=== PATIENT | male | born 1945 | race Caucasian/White ===

== ENCOUNTER 2016-12-04 10:29 | Day surgery (SDC) | payer MEDICARE, OTHER ==
[2016-12-04] VITALS (8 sets, daily range): BP systolic 102–125; BP diastolic 44–73; PULSE 61–84; RESP 13–18; O2SAT 91–96
[~2016-12-04] VITALS: Ht 170.2 cm; Wt 116.8 kg
--- NOTE | 2016-12-04 06:49 | PCM.HPANE ---
Patient Data Surgeon Admitting Provider: Attending Provider:Mariama Cyr MD Primary Care Physician:Jaquelin Craft MD Other Provider:[facility] [facility] Reason for Visit Bladder Tumor Ht/WT & BMI Height (Feet): 5 Height (Inches): 7 Weight (Kilograms): 117.660 Body Mass Index 40.00 Allergies Coded Allergies: glipizide (Verified Allergy, Unknown, hives, 04/27/16) simvastatin (Verified Allergy, Unknown, elevated triglycerides, 04/27/16) oxycodone (Verified Adverse Reaction, Unknown, hallucinations, 04/27/16) Past Anesthesia History Anesthesia History: Denies:: Abnormal Airway, Anesthesia Reactions, Difficult Intubation, Fam Anesthesia Reaction, Fam Malignant Hypertherm, Malignant Hyperthermia Diabetes History Hx Diabetes?: Yes (last Hgb A1C 7.2 approx 6 weeks ago) Type of Diabetes: Type II Glycemic Control: Insulin & Oral Medication MRSA MRSA: No Medications Blood Thinner: Aspirin Reported Medications Cetirizine HCl (Zyrtec)10 Mg Rhyhmqh25 Mg PO HS #30 CAPSULE Ref 0 12/01/16 Bupropion ER (Wellbutrin SR)100 Mg Tablet.er100 Mg PO BID Ref 0 12/01/16 Cholecalciferol (Vitamin D3) (Vitamin D3)4,000 Unit Capsule1,000 Unit PO DAILY 12/01/16 Vit B Comp/C/FA/Iron/Vit E (Vitamin B Complex Tablet)1 Each Tablet1 Each PO DAILY 12/01/16 Fenofibrate (Tricor)145 Mg Hwk898 Mg PO DAILY 30 Days Ref 0 12/01/16 Linagliptin (Tradjenta)5 Mg Tablet5 Mg PO DAILY 12/01/16 Levothyroxine (Synthroid)125 Mcg Tinomf847 Mcg PO DAILY Ref 0 12/01/16 Bacillus Coagulans (Probiotic)10 Billion Cell Capsule.dr1 Each PO DAILY 12/01/16 Omeprazole 40 Mg Capsule.dr40 Mg PO DAILY Ref 0 12/01/16 Oxybutynin Chloride ER 5 Mg Tab.er.245 Mg PO DAILY Ref 0 12/01/16 Metformin (Glucophage)1,000 Mg Tablet1,000 Mg PO BID Ref 0 12/01/16 Lisinopril 40 Mg Wiweyt54 Mg PO DAILY 30 Days Ref 0 12/01/16 Atorvastatin (Lipitor)20 Mg Xlrmeg06 Mg PO DAILY Ref 0 12/01/16 Insulin Glargine (Lantus U100 Insulin Vial)100 Unit/Ml Vial30 Unit SUBQ HS #1 VIAL Ref 0 12/01/16 [place]-3/Dha/Epa/Fish Oil (Fish Oil 1,000 mg Softgel)1 Each Capsule1 Each PO DAILY 12/01/16 Carvedilol (Coreg)25 Mg Zypkbm44 Mg PO BID Ref 0 12/01/16 Ubidecarenone/Vit E Acetate (Co Q-10 100 mg Softgel)1 Each Capsule1 Each PO DAILY 12/01/16 Aspirin 81 Mg Ofouvi25 Mg PO DAILY Ref 0 12/01/16 Discontinued Reported Medications Mitomycin 40 Mg Vial40 Mg BLADDER monthly 12/01/16 Hyoscyamine SL 0.125 Mg Subl0.125 Mg SL Q6H PRN frequency 12/01/16 Cholecalciferol (Vitamin D3) (Vitamin D3)1,000 Unit Tab.chew1,000 Unit PO DAILY 05/01/16 Ranitidine 150 Mg Tftfjzb087 Mg PO DAILY PRN reflux Ref 0 05/01/16 Linagliptin (Tradjenta)5 Mg Tablet5 Mg PO DAILY #30 05/01/16 Metformin (Glucophage)1,000 Mg Tablet1,000 Mg PO BID Ref 0 04/28/16 Cetirizine HCl (Zyrtec)10 Mg Ojzfsuj97 Mg PO HS #30 CAPSULE Ref 0 04/27/16 Bupropion ER (Wellbutrin SR)100 Mg Tablet.er100 Mg PO BID Ref 0 04/27/16 Lactobacillus Combination No.4 (Probiotic)1 Each Capsule2 Each PO HS 04/27/16 Omeprazole Magnesium (Prilosec Otc)20 Mg Tablet.dr20 Mg PO BID #1 PKG Ref 0 04/27/16 Hyoscyamine 0.125 Mg Tablet0.125 Mg SL Q6H PRN prn 04/27/16 Insulin Glargine (Lantus U100 Insulin Vial)100 Unit/Ml Vial16 Unit SUBQ QPM #1 VIAL Ref 0 01/10/16 Fenofibrate (Tricor)145 Mg Rlv505 Mg PO DAILY 30 Days Ref 0 01/10/16 Vitamin B Complex 100 No.2 (B-100 Complex)100 Mg Tablet.er100 Mg PO DAILY 06/24/15 [place]-3/Dha/Epa/Fish Oil (Fish Oil 1,000 mg Softgel)1 Each Capsule1 Each PO DAILY 06/24/15 Aspirin 81 Mg Jeglob35 Mg PO DAILY Ref 0 06/24/15 Levothyroxine (Synthroid)125 Mcg Bbqbgd748 Mcg PO DAILY 30 Days Ref 0 02/24/15 Lisinopril 40 Mg Qufrji78 Mg PO DAILY 30 Days Ref 0 02/24/15 Atorvastatin (Lipitor)20 Mg Zqlqgc18 Mg PO DAILY 30 Days Ref 0 02/24/15 Carvedilol (Coreg)25 Mg Pjljoe68 Mg PO BID 30 Days Ref 0 02/24/15 Ubidecarenone/Vit E Acetate (Co Q-10 100 mg Softgel)1 Each Capsule1 Each PO DAILY 02/24/15 History History of ENT Problems?: Yes HEENT History: Positive for:: Hearing Problem TMJ (grinds teeth, wears plant protection guard) Denies:: Abnormal Airway Cataracts Difficult Intubation Dysphagia Sinus Problem Hx of Heart Problems?: Yes Cardiovascular History: Positive for:: Cardiac Surgery ([place] with stents X2- 2008) Hypertension Denies:: AICD Abdominal Aortic Aneurism Atrial Fibrillation Chest Pain Congestive Heart Failure Edema Heart Murmur (echo 08/2015 ef 55%) Irregular Heartbeat Pacemaker Valvular Heart Disease Hx of Respiratory Problem?: No Respiratory History: Denies:: Asthma COPD Emphysema Oxygen Administration Pneumonia Pulmonary Embolism Tuberculosis Use of C-PAP Machine (does not tolerate CPAP) Hx Neurologic Problems?: No Neurological History: Denies:: Alzheimer's Disease CVA Dementia Dizziness Headaches Multiple Sclerosis Parkinson's Disease Seizures Hx of GI Problems?: Yes Gastrointestinal History: Positive for:: Gastroesphageal Reflux Heartburn Denies:: Cirrhosis Diverticulitis Gastrointestinal Bleeding Hepatitis Rectal Bleeding Hx of Problems?: Yes Other Pertinent History: bladder tumor, current admission problem- monthly mitomycin, last cysto 04/2016 Male Hx: Denies:: Prostate Problems Scrotal Mass Testicular Surgery Skin History: Denies:: History Skin Disorders? Pressure Ulcers Hx Musculoskeletal Problems?: Yes Musculoskeletal History: Positive for:: Musculoskeletal Trauma (S/p knee arthroscopies) Hx of Psycho/Social Problems?: No Hx Surgeries?: Yes (tonsils, vocal cord polyps, Cysto, TURBT X2,) Hx Any Other Health Problems?: Yes Other History: Positive for:: Cancer (BLADDER) Thyroid Disease Denies:: Endocrine Disease Hospitalization History Blood Transfusions: Denies:: Blood Transfusions Hx Diabetes: Yes (last Hgb A1C 7.2 approx 6 weeks ago) Hx Alcohol Use: YesHx Substance Use: No Smoking Status: Current Every Day Smoker Light Tobacco Smoker Have You Smoked inLast 12 mo: Yes Stop/Bang S-Snoring: Do You Snore Loudly: No T-Tired: feel tired, fatigued: No O-Obsered: Observed not breath: No P-Blood Pressure: treated: Yes B- Body Mass Index > 35 kg/m2: Yes A- Age over 50: Yes N- Neck Large Circumference: Yes G- Gender Male: Yes FLEX Total Score: 5 Risk Assessment Category Category 1A: Patient has history of documented sleep apnea, and HAS NOT received any narcotic, sedative or anesthesia administration during this stay. Category 1B: Patient has history of documented sleep apnea, and HAS received any narcotic , sedative or anesthesia administration during this stay Category 2: Patient has SUSPECTED Obstructive Sleep Apnea, and HAS received any narcotic , sedative or anesthesia administration during this stay. Category 3: Patient has SUSPECTED Obstructive Sleep Apnea and HAS NOT received narcotic, sedative or anesthesia administration during this stay. Category 4: Outpatient in Procedural Areas with known sleep apnea or who screen positive for High Risk via the STOP/BANG questionnaire. Exam Exam General Appearance: Alert, Oriented X3, Cooperative HEENT/AIRWAY: MP 2, Neck Movement (FROM, Thick), Mouth Opening (WNL) Lungs: Clear to Auscultation Heart: Exam Unremarkable Plan Impression Patient chart reviewed, patient interviewed and anesthestic plan with risks, benefits, and alternatives discussed, and informed consent obtained. NPO Status: 04/30/16 ASA Physical Status: ASA3 Severe Disease Anesthetic Plan: GA Bene/Risks/Altern/Consents: Yes HP Complete Prior to Induction: Yes Elgin Santos MD Dec 04, 2016 06:49
[~2016-12-04 10:29] MED LIST: ASPI-973 PO; ATOR20TA PO; BACI1CAP6 PO; BUPR100T7 PO; CARV25TA PO; CETI10CA PO; CHOL40003 PO; CeFAZolin Inj 2 GM in IV Premix 1 EACH IV ONE; FENO160T PO; HYOS0.1218 SL; INSU100V7 SUBQ; LEVO125T2 PO; LINA5TAB PO; LISI40TA PO; Lactated Ringer's 1,000 ML IV ONE; METF1000 PO; OMEG-38 PO; OMEP40CA36 PO; OXYB5TAB PO; UBID1CAP52 PO; VIT1TABL83 PO; [UNRECOGNIZED DRUG - CODE] BLADDER
[2016-12-04] MEDS ORDERED: Neostigmine 1 mg/mL 10 mL Inj ONE (10:30)
[2016-12-04] MEDS ORDERED: Propofol 10,000 mCg/mL 20 mL Inj ONE (10:30)
[2016-12-04] MEDS ORDERED: Ondansetron 2 mg/mL 2 mL Inj ONE (10:30)
[2016-12-04] MEDS ORDERED: fentaNYL-PF 50 mCg/mL 2 mL Inj ONE (10:30)
[2016-12-04] MEDS ORDERED: CeFAZolin Inj 2 gm / 50mL D5W IV ONE (10:41)
[2016-12-04] MEDS ORDERED: Lactated Ringer's 1,000 ML IV SCH (13:19)
[2016-12-04] MEDS ORDERED: Lactated Ringer's 500 ML IV PRN (13:19)
[2016-12-04] MEDS ORDERED: hydrALAZINE 20 mg/mL Inj IVPUSH PRN (13:20)
[2016-12-04] MEDS ORDERED: Ondansetron 2 mg/mL 2 mL Inj IVPUSH PRN (13:20)
[2016-12-04] MEDS ORDERED: Atropine 0.4 mg/mL Inj IVPUSH PRN (13:20)
[2016-12-04] MEDS ORDERED: Dexamethasone 4 mg/mL Inj IVPUSH PRN (13:20)
[2016-12-04] MEDS ORDERED: Labetalol 5 mg/mL 4 mL Inj IV PRN (13:20)
[2016-12-04] MEDS ORDERED: fentaNYL-PF 50 mCg/mL 2 mL Inj IVPUSH PRN (13:20)
[2016-12-04] MEDS ORDERED: Phenylephrine 10,000 mCg/mL Inj IVPUSH PRN (13:20)
[2016-12-04] MEDS ORDERED: HYDROmorphone 1 mg/mL Inj IVPUSH PRN (13:20)
[2016-12-04] MEDS ORDERED: EPHEDrine Sulfate 50 mg/mL Inj IVPUSH PRN (13:20)
--- NOTE | 2016-12-04 14:55 | PCM.ANEP1 ---
Post Anesthesia Phase 1 PACU Phase 1 Assessment Vital Signs Vital Signs Date Time Temp Pulse Resp B/P Pulse Ox O2 Delivery O2 Flow Rate FiO2 12/04/16 14:35 82 15 113/45 95 Simple Mask 10 12/04/16 14:30 36.3 84 17 125/58 96 Simple Mask 10 12/04/16 10:51 35.2 69 18 124/62 94 Room Air Anesthetic Administered: GA Level of Alertness: Awake, talking DENISE's with Equal Strength: Yes Pain: No Nausea or Vomiting: No Oxygen Delivery: Room Air Lungs: Normal Air Movement Elgin Santos MD Dec 04, 2016 14:55
[2016-12-04] MEDS ORDERED: HYDROcodone-APAP 5-325 mg Tablet PO PRN (15:15)
--- NOTE | 2016-12-05 00:59 | OP ---
[address] [address] OPERATIVE REPORT PATIENT: DENNIS MCDONALD : 1945 MR#: [id number] ADMIT: 12/04/2016 JOB ID: [id number] DATE OF SURGERY: 12/04/2016 PREOPERATIVE DIAGNOSIS(ES): Bladder lesion. POSTOPERATIVE DIAGNOSIS(ES): Bladder lesion. PROCEDURES PERFORMED: 1. Digital rectal exam under anesthesia. 2. Cystoscopy. 3. Transurethral resection of bladder tumor (1 cm). Modifier 22 is being requested due to patient's body habitus and location of the tumor, which required a resection time over 100% longer than typical for the size of tumor. SURGEON: Mariama Cyr MD. BONE GLUE MAKER: None. FINDINGS: 1. Normal rectal exam without suspicious lesions or masses. 2. Nodular appearing tumor at the dome of the bladder surrounded by bullous edema. ANESTHESIA: General. ESTIMATED BLOOD LOSS: Less than 5 mL. DRAINS: None. SPECIMENS: Bladder tumor. COMPLICATIONS: None. CONDITION: Stable. INDICATIONS FOR PROCEDURE: The patient is a 71-year-old gentleman with a history of bladder cancer. On surveillance cystoscopy, he was found to have what appeared to be a bladder tumor again at the dome, where he had tumor in the past. He now presents for transurethral resection of bladder tumor. DESCRIPTION OF PROCEDURE: After informed consent was obtained, patient was taken to the operating room. A time-out was performed, identifying correct patient, surgical site and procedure. General anesthesia was smoothly induced. He was placed in the lithotomy position and all pressure points were identified and appropriately padded. Rectal exam was performed without suspicious findings. His genitals were then prepped and draped in usual sterile fashion. Given the patient's body habitus, the location of the tumor, and past experience with the nature of this resection, the long resectoscope was utilized. It was inserted into the patient's bladder under direct vision. The bladder was systematically inspected. The lenses with the long resectoscope were both 12 and 70 degree lenses, which were both used. There were no other lesions other than that in the dome of the bladder. It was attempted to use the 24-Slovak loop to resect the tumor and considerable amount of assistance was required to push down on the bladder to bring it into proximity of the resectoscope. There was quite a bit of manipulation that was required on the scope and the duration of procedure was over three times that of a normal TURBT for the size of this tumor, given the location, as well as the patient's very obese body habitus; therefore, modifier 22 is being requested. So both with the resectoscope, as well as cold cup biopsies, the tumor was removed. The resecting loop was used to cauterize the dome of the bladder again with considerable effort made. The bladder was drained and area of resection was inspected again, and there was excellent hemostasis at the end of the procedure. Instruments were removed from the patient's body and patient was reversed from general anesthesia and taken to the PACU in good and stable condition. CURT
--- NOTE | 2016-12-05 07:45 | PCM.ANEP2 ---
Post Anesthesia Evaluation ASA/CMS Post Anesthesia VS in Patient's Normal Range?: Yes Resp Stable; Airway Patent?: Yes CV Function & Hydration Stable: Yes Mental Status Recovered?: Yes Pain control Satisfactory?: Yes N/V Control Satisfactory?: Yes Elgin Santos MD Dec 05, 2016 07:45
--- NOTE | 2016-12-08 10:53 | PATH ---
SURGICAL PATHOLOGY Attending Physician:Mariama Cyr, CASE STATUS: Signed Out PATIENT NAME: DENNIS MCDONALD PID: [id number] : 1945 DATE COLLECTED:12/04/2016 23:36 SPECIMEN: Bladder, Biopsy CLINICAL HISTORY: BLADDER TUMOR 1). BLADDER TUMOR FINAL DIAGNOSIS: 1.BIOPSY, URINARY BLADDER TUMOR: UROTHELIAL CARCINOMA, HIGH GRADE, WITH AREAS OF GLANDULAR DIFFERENTIATION, INVADING THE LAMINA PROPRIA. MUSCULARIS PROPRIA NOT DEFINITELY IDENTIFIED. ICD10 code C67.9 NOTE: A preliminary report is telephoned to Dr. Mariama Cyr at 11:45 a.m. on 12/05/16. Case reviewed by Dr Minesh Thomas who agrees with the diagnosis. GROSS DESCRIPTION: The specimen is received in one formalin filled container labeled with the patient's name, sublabeled "bladder tumor" and consists of a 0.3 x 0.3 x 0.2 CM light chirinos-montoya portion of tissue which is entirely submitted in one cassette. 12/05/2016 DAC MICRO DESCRIPTION: Sections are of a biopsy from the urinary bladder. The tissue is diffusely involved by an invasive carcinoma which in most areas has a distinct urothelial appearance, whereas in other areas there appears to be glandular differentiation. The tumor is invading lamina propria, and although some smooth muscle fibers are seen, these are most consistent with muscularis mucosa rather than muscularis propria. Definite muscularis propria is not identified. Immunohistochemistry is performed in order to better evaluate the two patterns of tumor. Immunohistochemistry Results [id number], both glandular and urothelial growth patterns [id number] in glandular pattern only CHRISTINA-3Strongly positive in urothelial pattern and weakly positive in the glandular pattern PSANegative Interpretation: This immunophenotype is consistent with a high-grade urothelial carcinoma which shows glandular differentiation. This test was developed and its performance characteristics determined by [employer]. It has not been cleared or approved by the [place]. [place]. Food and Drug Administration. The FDA has determined that such clearance or approval is not necessary. This test is used for clinical purposes. It should not be regarded as investigational or for research. ICD-9 CODES: CPT CODES: 1: 13516, 63811, 36979, 17787, 90276 PROCEDURE/ADDENDA: Addendum SPI Addendum Diagnosis A) Urinary bladder biopsy: Urothelial carcinoma, high grade Secondary component: Glandular component: 40% Stage: Invasion of lamina propria (pT1) Extent of LP invasion: Extensive Angiolymphatic invasion: Absent Muscularis propria: Absent Addendum Comment Immunohistochemical stains performed at the outside institution and reviewed at [facility] show that the carcinoma cells are positive for GATA3 (strong and diffuse in the urothelial component, and weak in the glandular area), CK7, and CK20 (positive only in the glandular areas), and negative for PSA. These findings support the above diagnosis. For complete details see [facility] original report [id number]. Electronically Signed Out Reji Nunez MD Electronically Signed Out Reji Nunez MD [facility] [address], [place] [address] Technical component performed at [facility], [address], [place], [address]
[2016-12-27] MEDS ORDERED: MITOMYCIN IVPB (17:09)
[2017-03-01] MEDS ORDERED: RANI-426 PO (12:52)
[2017-03-01] MEDS ORDERED: FENO160T14 PO (12:52)
[2017-03-01] MEDS ORDERED: INSU100I13 SUBQ (12:52)
[2017-03-01] MEDS ORDERED: CHOL500050 PO (13:09)
[2017-03-01] MEDS ORDERED: OMEP20CA11 PO (13:09)
[2017-03-01] MEDS ORDERED: RANI150C4 PO (13:09)
== END 2016-12-04 23:59 | disposition home or self-care (01) ==
LOC: SAS 10:29
PROVIDERS: ATTEND Urology
DX: C67.9 Malignant neoplasm of bladder, unspecified (principal); I10 Essential (primary) hypertension; I25.10 Atherosclerotic heart disease of native coronary artery without angina pectoris; R31.0 Gross hematuria; K21.9 Gastro-esophageal reflux disease without esophagitis; E11.9 Type 2 diabetes mellitus without complications; F17.210 Nicotine dependence, cigarettes, uncomplicated; Z79.4 Long term (current) use of insulin; Z79.84 Long term (current) use of oral hypoglycemic drugs; Z79.82 Long term (current) use of aspirin; Z95.5 Presence of coronary angioplasty implant and graft
CPT/HCPCS: 45990; 52234; J0690; J2405; J2710; J3010; J7120

== ENCOUNTER 2017-01-15 08:26 | Day surgery (SDC) | payer MEDICARE, OTHER ==
--- NOTE | 2016-12-29 07:44 | PCM.HPANE ---
Patient Data Surgeon Admitting Provider: Attending Provider:Mariama Cyr MD Primary Care Physician:Jaquelin Craft MD Other Provider:[facility] [facility] Reason for Visit Bladder Cancer Ht/WT & BMI Height (Feet): 5 Height (Inches): 7 Weight (Kilograms): 118.388 Body Mass Index 40.00 Allergies Coded Allergies: glipizide (Verified Allergy, Severe, hives, 12/27/16) aspirin (Verified Adverse Reaction, Severe, HALLUCINATIONS (PT TAKING LOW-DOSE), 12/27/16) oxycodone (Verified Adverse Reaction, Severe, hallucinations, 12/27/16) simvastatin (Verified Adverse Reaction, Severe, elevated triglycerides, 09/02) Past Anesthesia History Anesthesia History: Denies:: Abnormal Airway, Anesthesia Reactions, Difficult Intubation, Fam Anesthesia Reaction, Fam Malignant Hypertherm, Malignant Hyperthermia Diabetes History Hx Diabetes?: Yes (LAST HGB A1C (APPROX 2 MONTHS AGO) 7.2) Type of Diabetes: Type II Glycemic Control: Insulin & Oral Medication MRSA MRSA: No Medications Blood Thinner: Aspirin Hypertension Medication: Yes (LISINOOPRIL) Home Meds Incl Beta Keisha: Yes (CARVEDILOL) Reported Medications [Mitomycin ] No Conflict Check40 Mg IVPB Q 4 MONTHS 12/27/16 Cetirizine HCl (Zyrtec)10 Mg Zzripux00 Mg PO HS #30 CAPSULE Ref 0 12/01/16 Bupropion ER (Wellbutrin SR)100 Mg Tablet.er100 Mg PO BID Ref 0 12/01/16 Cholecalciferol (Vitamin D3) (Vitamin D3)4,000 Unit Capsule1,000 Unit PO DAILY 12/01/16 Vit B Comp/C/FA/Iron/Vit E (Vitamin B Complex Tablet)1 Each Tablet1 Each PO DAILY 12/01/16 Fenofibrate (Tricor)145 Mg Xoi549 Mg PO DAILY 30 Days Ref 0 12/01/16 Linagliptin (Tradjenta)5 Mg Tablet5 Mg PO DAILY 12/01/16 Levothyroxine (Synthroid)125 Mcg Seuwgi099 Mcg PO DAILY Ref 0 12/01/16 Bacillus Coagulans (Probiotic)10 Billion Cell Capsule.dr1 Each PO DAILY 12/01/16 Omeprazole 40 Mg Capsule.dr40 Mg PO DAILY Ref 0 12/01/16 Oxybutynin Chloride ER 5 Mg Tab.er.245 Mg PO DAILY Ref 0 12/01/16 Metformin (Glucophage)1,000 Mg Tablet1,000 Mg PO BID Ref 0 12/01/16 Lisinopril 40 Mg Joephd25 Mg PO DAILY 30 Days Ref 0 12/01/16 Atorvastatin (Lipitor)20 Mg Lcgyaf26 Mg PO DAILY Ref 0 12/01/16 Insulin Glargine (Lantus U100 Insulin Vial)100 Unit/Ml Vial30 Unit SUBQ HS #1 VIAL Ref 0 12/01/16 [place]-3/Dha/Epa/Fish Oil (Fish Oil 1,000 mg Softgel)1 Each Capsule1 Each PO DAILY 12/01/16 Carvedilol (Coreg)25 Mg Fnmylf73 Mg PO BID Ref 0 12/01/16 Ubidecarenone/Vit E Acetate (Co Q-10 100 mg Softgel)1 Each Capsule1 Each PO DAILY 12/01/16 Aspirin 81 Mg Qozcex98 Mg PO DAILY Ref 0 12/01/16 History History of ENT Problems?: Yes HEENT History: Positive for:: Hearing Problem Sinus Problem (SEASONAL ALLERGIES) TMJ (grinds teeth, wears overnight associate) Denies:: Abnormal Airway Cataracts Difficult Intubation Dysphagia Other HEENT Pertinent History: S/P TONSILLECTOMY,EXC VOCAL CHORD POLYP Hx of Heart Problems?: Yes Cardiovascular History: Positive for:: Cardiac Surgery (HEART CATH W/ stents X2- 2009) Coronary Artery Disease Hypertension (HYPERLIPIDEMIA) Denies:: AICD Abdominal Aortic Aneurism Atrial Fibrillation Chest Pain Congestive Heart Failure Edema Heart Murmur (echo 08/2015 ef 55%) Irregular Heartbeat Pacemaker Valvular Heart Disease Hx of Respiratory Problem?: Yes Respiratory History: Positive for:: Use of C-PAP Machine (FLEX+ does not tolerate CPAP) Denies:: Asthma COPD Emphysema Oxygen Administration Pneumonia Pulmonary Embolism Tuberculosis Hx Neurologic Problems?: Yes Neurological History: Denies:: Alzheimer's Disease CVA Dementia Dizziness Headaches Multiple Sclerosis Parkinson's Disease Seizures Hx of GI Problems?: Yes Gastrointestinal History: Positive for:: Gastroesphageal Reflux Heartburn Denies:: Cirrhosis Diverticulitis Gastrointestinal Bleeding Hepatitis Rectal Bleeding (HX COLON POLYPS) Hx of Problems?: Yes Other Pertinent History: BLADDER TUMOR/CA=CURRENT PROBLEM C/OF HEMATURIA S/P TURBT X3, MONTHLY MITOMYCIN STARTED 05/2016 Male Hx: Denies:: Prostate Problems Scrotal Mass Testicular Surgery Skin History: Denies:: History Skin Disorders? Pressure Ulcers Hx Musculoskeletal Problems?: Yes Musculoskeletal History: Positive for:: Musculoskeletal Trauma (S/p knee arthroscopies) Hx of Psycho/Social Problems?: No Hx Surgeries?: Yes (tonsils, vocal cord polyps, Cysto, TURBT X3,KNEE SCOPES, HEART CATH W/ STENT) Hx Any Other Health Problems?: Yes Other History: Positive for:: Cancer (BLADDER) Thyroid Disease Denies:: Endocrine Disease Hospitalization History Blood Transfusions: Denies:: Blood Transfusions Hx Diabetes: Yes (LAST HGB A1C (APPROX 2 MONTHS AGO) 7.2) Hx Alcohol Use: YesHx Substance Use: No Smoking Status: Current Every Day Smoker Light Tobacco Smoker Have You Smoked inLast 12 mo: Yes Stop/Bang S-Snoring: Do You Snore Loudly: No T-Tired: feel tired, fatigued: Yes O-Obsered: Observed not breath: No P-Blood Pressure: treated: Yes B- Body Mass Index > 35 kg/m2: Yes A- Age over 50: Yes N- Neck Large Circumference: Yes G- Gender Male: Yes FLEX Total Score: 6 Risk Assessment Category Category 1A: Patient has history of documented sleep apnea, and HAS NOT received any narcotic, sedative or anesthesia administration during this stay. Category 1B: Patient has history of documented sleep apnea, and HAS received any narcotic , sedative or anesthesia administration during this stay Category 2: Patient has SUSPECTED Obstructive Sleep Apnea, and HAS received any narcotic , sedative or anesthesia administration during this stay. Category 3: Patient has SUSPECTED Obstructive Sleep Apnea and HAS NOT received narcotic, sedative or anesthesia administration during this stay. Category 4: Outpatient in Procedural Areas with known sleep apnea or who screen positive for High Risk via the STOP/BANG questionnaire. Plan Impression Patient chart reviewed, patient interviewed and anesthestic plan with risks, benefits, and alternatives discussed, and informed consent obtained. NPO Status: BLACK [place]FFEE THIS AM Other This case was rescheduled. I did not provide anesthesia. Jennifer Mason DO Dec 29, 2016 07:44
[~2017-01-15] VITALS: Ht 170.2 cm; Wt 118.4 kg
--- NOTE | 2017-01-15 06:39 | PCM.HPANE ---
Patient Data Surgeon Admitting Provider: Attending Provider:Mariama Cyr MD Primary Care Physician:Jaquelin Craft MD Other Provider:[facility] Reason for Visit Bladder Cancer Ht/WT & BMI Height (Feet): 5 Height (Inches): 7 Weight (Kilograms): 118.388 Body Mass Index 40.00 Allergies Coded Allergies: glipizide (Verified Allergy, Severe, hives, 12/27/16) aspirin (Verified Adverse Reaction, Severe, HALLUCINATIONS (PT TAKING LOW-DOSE), 12/27/16) oxycodone (Verified Adverse Reaction, Severe, hallucinations, 12/27/16) simvastatin (Verified Adverse Reaction, Severe, elevated triglycerides, 09/02) Past Anesthesia History Anesthesia History: Denies:: Abnormal Airway, Anesthesia Reactions, Difficult Intubation, Fam Anesthesia Reaction, Fam Malignant Hypertherm, Malignant Hyperthermia Additional Information: Hx of difficult intubation. Hx of EZ glidescope intubation Diabetes History Hx Diabetes?: Yes (LAST HGB A1C (APPROX 2 MONTHS AGO) 7.2) Type of Diabetes: Type II Glycemic Control: Insulin & Oral Medication MRSA MRSA: No Medications Blood Thinner: Aspirin Hypertension Medication: Yes (LISINOOPRIL) Home Meds Incl Beta Keisha: Yes (CARVEDILOL) Reported Medications [Mitomycin ] No Conflict Check40 Mg IVPB Q 4 MONTHS 12/27/16 Cetirizine HCl (Zyrtec)10 Mg Lwsxozg24 Mg PO HS #30 CAPSULE Ref 0 12/01/16 Bupropion ER (Wellbutrin SR)100 Mg Tablet.er100 Mg PO BID Ref 0 12/01/16 Cholecalciferol (Vitamin D3) (Vitamin D3)4,000 Unit Capsule1,000 Unit PO DAILY 12/01/16 Vit B Comp/C/FA/Iron/Vit E (Vitamin B Complex Tablet)1 Each Tablet1 Each PO DAILY 12/01/16 Fenofibrate (Tricor)145 Mg Zrr238 Mg PO DAILY 30 Days Ref 0 12/01/16 Linagliptin (Tradjenta)5 Mg Tablet5 Mg PO DAILY 12/01/16 Levothyroxine (Synthroid)125 Mcg Vwdsyk119 Mcg PO DAILY Ref 0 12/01/16 Bacillus Coagulans (Probiotic)10 Billion Cell Capsule.dr1 Each PO DAILY 12/01/16 Omeprazole 40 Mg Capsule.dr40 Mg PO DAILY Ref 0 12/01/16 Oxybutynin Chloride ER 5 Mg Tab.er.245 Mg PO DAILY Ref 0 12/01/16 Metformin (Glucophage)1,000 Mg Tablet1,000 Mg PO BID Ref 0 12/01/16 Lisinopril 40 Mg Sbgbsu37 Mg PO DAILY 30 Days Ref 0 12/01/16 Atorvastatin (Lipitor)20 Mg Ueadaa40 Mg PO DAILY Ref 0 12/01/16 Insulin Glargine (Lantus U100 Insulin Vial)100 Unit/Ml Vial30 Unit SUBQ HS #1 VIAL Ref 0 12/01/16 [place]-3/Dha/Epa/Fish Oil (Fish Oil 1,000 mg Softgel)1 Each Capsule1 Each PO DAILY 12/01/16 Carvedilol (Coreg)25 Mg Hemygt54 Mg PO BID Ref 0 12/01/16 Ubidecarenone/Vit E Acetate (Co Q-10 100 mg Softgel)1 Each Capsule1 Each PO DAILY 12/01/16 Aspirin 81 Mg Mugchf16 Mg PO DAILY Ref 0 12/01/16 History History of ENT Problems?: Yes HEENT History: Positive for:: Hearing Problem Sinus Problem (SEASONAL ALLERGIES) TMJ (grinds teeth, wears guardian ad litem) Denies:: Abnormal Airway Cataracts Difficult Intubation Dysphagia Denture Type: None Teeth Condition: Within Normal Limits Other HEENT Pertinent History: S/P TONSILLECTOMY,EXC VOCAL CHORD POLYP Hx of Heart Problems?: Yes Cardiovascular History: Positive for:: Cardiac Surgery (HEART CATH W/ stents X2- 2009) Coronary Artery Disease Hypertension (HYPERLIPIDEMIA) Denies:: AICD Abdominal Aortic Aneurism Atrial Fibrillation Chest Pain Congestive Heart Failure Edema Heart Murmur (echo 08/2015 ef 55%) Irregular Heartbeat Pacemaker Valvular Heart Disease Hx of Respiratory Problem?: Yes Respiratory History: Positive for:: Use of C-PAP Machine (FLEX+ does not tolerate CPAP) Denies:: Asthma COPD Emphysema Oxygen Administration Pneumonia Pulmonary Embolism Tuberculosis Hx Neurologic Problems?: Yes Neurological History: Denies:: Alzheimer's Disease CVA Dementia Dizziness Headaches Multiple Sclerosis Parkinson's Disease Seizures Hx of GI Problems?: Yes Hx of Problems?: Yes Other Pertinent History: BLADDER TUMOR/CA=CURRENT PROBLEM C/OF HEMATURIA S/P TURBT X3, MONTHLY MITOMYCIN STARTED 05/2016 Male Hx: Denies:: Prostate Problems Scrotal Mass Testicular Surgery Skin History: Denies:: History Skin Disorders? Pressure Ulcers Hx Musculoskeletal Problems?: Yes Musculoskeletal History: Positive for:: Musculoskeletal Trauma (S/p knee arthroscopies) Hx of Psycho/Social Problems?: No Hx Surgeries?: Yes (tonsils, vocal cord polyps, Cysto, TURBT X3,KNEE SCOPES, HEART CATH W/ STENT) Hx Any Other Health Problems?: Yes Other History: Positive for:: Cancer (BLADDER) Thyroid Disease Denies:: Endocrine Disease Hospitalization History Blood Transfusions: Denies:: Blood Transfusions Hx Diabetes: Yes (LAST HGB A1C (APPROX 2 MONTHS AGO) 7.2) Hx Alcohol Use: YesHx Substance Use: No Smoking Status: Current Every Day Smoker Light Tobacco Smoker Have You Smoked inLast 12 mo: Yes Stop/Bang S-Snoring: Do You Snore Loudly: No T-Tired: feel tired, fatigued: Yes O-Obsered: Observed not breath: No P-Blood Pressure: treated: Yes B- Body Mass Index > 35 kg/m2: Yes A- Age over 50: Yes N- Neck Large Circumference: Yes G- Gender Male: Yes FLEX Total Score: 6 Risk Assessment Category Category 1A: Patient has history of documented sleep apnea, and HAS NOT received any narcotic, sedative or anesthesia administration during this stay. Category 1B: Patient has history of documented sleep apnea, and HAS received any narcotic , sedative or anesthesia administration during this stay Category 2: Patient has SUSPECTED Obstructive Sleep Apnea, and HAS received any narcotic , sedative or anesthesia administration during this stay. Category 3: Patient has SUSPECTED Obstructive Sleep Apnea and HAS NOT received narcotic, sedative or anesthesia administration during this stay. Category 4: Outpatient in Procedural Areas with known sleep apnea or who screen positive for High Risk via the STOP/BANG questionnaire. Exam Exam General Appearance: Alert, Oriented X3, Cooperative HEENT/AIRWAY: MP 3, Neck Movement (Thick, FROM), Mouth Opening (WNL) Lungs: Clear to Auscultation Heart: Exam Unremarkable Plan Impression Patient chart reviewed, patient interviewed and anesthestic plan with risks, benefits, and alternatives discussed, and informed consent obtained. ASA Physical Status: ASA3 Severe Disease Anesthetic Support Modalities: [place] Scope Anesthetic Plan: GA Bene/Risks/Altern/Consents: Yes HP Complete Prior to Induction: Yes Elgin Santos MD January 15, 2017 06:39
[~2017-01-15 08:26] MED LIST changes: +CeFAZolin Inj 2 GM in IV Premix 1 EACH IV SCH; -HYOS0.1218 SL; +Lactated Ringer's 1,000 ML IV SCH; +MITOMYCIN IVPB; -[UNRECOGNIZED DRUG - CODE] BLADDER
[2017-01-15] MEDS ORDERED: fentaNYL-PF 50 mCg/mL 2 mL Inj ONE (08:27)
[2017-01-15] MEDS ORDERED: Propofol 10,000 mCg/mL 20 mL Inj ONE (08:27)
[2017-01-15 10:10] VITALS: BP 132/77; PULSE 67; RESP 15; O2SAT 94
[2017-01-15] MEDS ORDERED: Lactated Ringer's 1,000 ML IV SCH (10:27)
[2017-01-15] MEDS ORDERED: Lactated Ringer's 500 ML IV PRN (10:27)
[2017-01-15] MEDS ORDERED: hydrALAZINE 20 mg/mL Inj IVPUSH PRN (10:30)
[2017-01-15] MEDS ORDERED: Atropine 0.4 mg/mL Inj IVPUSH PRN (10:30)
[2017-01-15] MEDS ORDERED: HYDROmorphone 1 mg/mL Inj IVPUSH PRN (10:30)
[2017-01-15] MEDS ORDERED: Ondansetron 2 mg/mL 2 mL Inj IVPUSH PRN (10:30)
[2017-01-15] MEDS ORDERED: EPHEDrine Sulfate 50 mg/mL Inj IVPUSH PRN (10:30)
[2017-01-15] MEDS ORDERED: Phenylephrine 10,000 mCg/mL Inj IVPUSH PRN (10:30)
[2017-01-15] MEDS ORDERED: Dexamethasone 4 mg/mL Inj IVPUSH PRN (10:30)
[2017-01-15] MEDS ORDERED: fentaNYL-PF 50 mCg/mL 2 mL Inj IVPUSH PRN (10:30)
[2017-01-15] MEDS ORDERED: Labetalol 5 mg/mL 4 mL Inj IV PRN (10:30)
[2017-01-15 11:27] VITALS: BP 103/57; PULSE 75; RESP 15; O2SAT 94
[2017-01-15 11:35] VITALS: BP 105/63; PULSE 70; RESP 16; O2SAT 94
[2017-01-15 11:47] VITALS: BP 114/58; PULSE 68; RESP 16; O2SAT 94
[2017-01-15 11:52] VITALS: BP 114/62; PULSE 67; RESP 16; O2SAT 93
[2017-01-15] MEDS ORDERED: HYDROcodone-APAP 5-325 mg Tablet PO PRN (12:10)
--- NOTE | 2017-01-15 12:16 | PCM.ANEP1 ---
Post Anesthesia Phase 1 PACU Phase 1 Assessment Vital Signs Vital Signs Date Time Temp Pulse Resp B/P Pulse Ox O2 Delivery O2 Flow Rate FiO2 01/15/17 11:52 67 16 114/62 93 Nasal Cannula 2 01/15/17 11:47 68 16 114/58 94 Nasal Cannula 2 01/15/17 11:35 70 16 105/63 94 Nasal Cannula 2 01/15/17 11:27 36.1 75 15 103/57 94 Nasal Cannula 2 01/15/17 10:10 36.6 67 15 132/77 94 Anesthetic Administered: GA Level of Alertness: Awake, talking DENISE's with Equal Strength: Yes Pain: No Nausea or Vomiting: No Oxygen Delivery: Room Air Lungs: Normal Air Movement Complications: No Follow up Care: No Elgin Santos MD January 15, 2017 12:16
[2017-01-15] MEDS ORDERED: HYDROcodone-APAP 5-325 mg Tablet PO ONE ×2 (12:23→13:15)
[2017-01-15 13:09] VITALS: BP 124/67; PULSE 64; RESP 17; O2SAT 94
--- NOTE | 2017-01-15 20:57 | OP ---
[address] [address] OPERATIVE REPORT PATIENT: DENNIS MCDONALD : 1945 MR#: [id number] ADMIT: 01/15/2017 JOB ID: [id number] DATE OF SURGERY: 01/15/2017 SURGEON: aMriama Cyr MD. TENSION MACHINE OPERATOR: None. PREOPERATIVE DIAGNOSIS(ES): History of bladder cancer. POSTOPERATIVE DIAGNOSIS(ES): History of bladder cancer. PROCEDURE PERFORMED: Cystoscopy and bladder biopsy. FINDINGS: 1. Erythematous dome of bladder with friable tissue. Otherwise, normal-appearing bladder. 2. Extreme obesity resulting in again another difficult cystoscopy and bladder biopsy. ANESTHESIA: General. ESTIMATED BLOOD LOSS: Less than 5 mL. DRAINS: None. SPECIMENS: 1. Bladder base. 2. Right lateral wall. 3. Left lateral wall. 4. Bladder dome. COMPLICATIONS: None. CONDITION: Stable. INDICATION FOR PROCEDURE: The patient is a 71-year-old gentleman with history of bladder cancer. He now presents for bladder biopsy. DESCRIPTION OF PROCEDURE: After informed consent was obtained, the patient was taken to the operating room. A time-out was performed, identifying correct patient, surgical site, and procedure. General anesthesia was smoothly induced. He was given intravenous antibiotics just prior to start of procedure He was placed in lithotomy position. All pressure points were identified and appropriately padded. It should be mentioned that the patient has quite an unfavorable body habitus given his truncal obesity. It was quite difficult to maneuver the cystoscope for bladder biopsy, especially at the dome, given how large he is. body technician/painter at the table side is required to give extreme abdominal pressure in order to bring the bladder into the field for the cystoscope. Bladder biopsies were taken with cold cup biopsies of the aforementioned places. The bladder dome had a thin layer of clot over it with friable-appearing tissue at the dome. Cold cup biopsy forceps were used with Bugbee electrocautery following each biopsy. These were labeled and passed off to Pathology as aforementioned. The bladder was drained and was reinspected. There was excellent hemostasis at the end of the procedure. The patient was reversed from general anesthesia and taken to PACU in good and stable condition. [facility] CENTERDayanna
[2017-03-01] MEDS ORDERED: FENO160T14 PO (12:52)
[2017-03-01] MEDS ORDERED: RANI-426 PO (12:52)
[2017-03-01] MEDS ORDERED: INSU100I13 SUBQ (12:52)
[2017-03-01] MEDS ORDERED: RANI150C4 PO (13:09)
[2017-03-01] MEDS ORDERED: OMEP20CA11 PO (13:09)
[2017-03-01] MEDS ORDERED: CHOL500050 PO (13:09)
== END 2017-01-15 23:59 | disposition home or self-care (01) ==
LOC: SAS 08:26
PROVIDERS: ATTEND Urology
DX: N30.80 Other cystitis without hematuria (principal); Z85.51 Personal history of malignant neoplasm of bladder; I25.10 Atherosclerotic heart disease of native coronary artery without angina pectoris; I10 Essential (primary) hypertension; E11.9 Type 2 diabetes mellitus without complications; G47.33 Obstructive sleep apnea (adult) (pediatric); F17.210 Nicotine dependence, cigarettes, uncomplicated; Z95.5 Presence of coronary angioplasty implant and graft; E66.01 Morbid (severe) obesity due to excess calories; Z68.41 Body mass index [BMI] 40.0-44.9, adult; Z79.4 Long term (current) use of insulin; Z79.84 Long term (current) use of oral hypoglycemic drugs
CPT/HCPCS: 52204; J0690; J3010; J7120

== ENCOUNTER 2017-03-08 05:41 | Day surgery (SDC) | payer MEDICARE, OTHER ==
[~2017-03-08] VITALS: Ht 170.2 cm; Wt 118.4 kg
[~2017-03-08 05:41] MED LIST changes: -CHOL40003 PO; +CHOL500050 PO; -CeFAZolin Inj 2 GM in IV Premix 1 EACH IV ONE; -CeFAZolin Inj 2 GM in IV Premix 1 EACH IV SCH; -FENO160T PO; +FENO160T14 PO; -Lactated Ringer's 1,000 ML IV ONE; -Lactated Ringer's 1,000 ML IV SCH; -MITOMYCIN IVPB; +OMEP20CA11 PO; -OMEP40CA36 PO; +RANI150C4 PO
[2017-03-08] MEDS ORDERED: Propofol 10 mg/mL 20 mL Inj ONE (05:42)
[2017-03-08] MEDS ORDERED: Ketamine 10 mg/mL 20 mL Inj ONE (05:42)
[2017-03-08] MEDS ORDERED: Lactated Ringer's 1,000 ML IV ONE (05:54)
[2017-03-08] MEDS ORDERED: CeFAZolin Inj 2 GM in IV Premix 1 EACH IV ONE (06:00)
[2017-03-08 06:03] VITALS: BP 135/64; PULSE 85; RESP 16; O2SAT 95
[2017-03-08] MEDS ORDERED: Lactated Ringer's 500 ML IV PRN (06:54)
[2017-03-08] MEDS ORDERED: Lactated Ringer's 1,000 ML IV SCH (06:54)
[2017-03-08] MEDS ORDERED: EPHEDrine Sulfate 50 mg/mL Inj IVPUSH PRN (06:55)
[2017-03-08] MEDS ORDERED: hydrALAZINE 20 mg/mL Inj IVPUSH PRN (06:55)
[2017-03-08] MEDS ORDERED: Labetalol 5 mg/mL 4 mL Inj IV PRN (06:55)
[2017-03-08] MEDS ORDERED: Phenylephrine 10,000 mCg/mL Inj IVPUSH PRN (06:55)
[2017-03-08] MEDS ORDERED: HYDROmorphone 1 mg/mL Inj IVPUSH PRN (06:55)
[2017-03-08] MEDS ORDERED: MetoCLOpramide 5 mg/mL 2 mL Inj IVPUSH PRN (06:55)
[2017-03-08] MEDS ORDERED: Dexamethasone 4 mg/mL Inj IVPUSH PRN (06:55)
[2017-03-08] MEDS ORDERED: fentaNYL-PF 50 mCg/mL 2 mL Inj IVPUSH PRN (06:55)
[2017-03-08] MEDS ORDERED: Ondansetron 2 mg/mL 2 mL Inj IVPUSH PRN (06:55)
--- NOTE | 2017-03-08 07:20 | PCM.HPANE ---
Patient Data Date of Service: Mar 08, 2017 Surgeon Admitting Provider: Attending Provider:Clement Carvalho MD Primary Care Physician:Jaquelin Craft MD Other Provider:Matt Roldan Anesthesia Reason for Visit History Of Bladder Cancer Ht/WT & BMI Height (Feet): 5 Height (Inches): 7 Weight (Kilograms): 118.38 Body Mass Index 40.00 Allergies Coded Allergies: glipizide (Verified Allergy, Severe, hives, 03/01/17) simvastatin (Verified Adverse Reaction, Severe, elevated triglycerides, ) Past Anesthesia History Anesthesia History: Denies:: Abnormal Airway, Anesthesia Reactions, Difficult Intubation, Fam Anesthesia Reaction, Fam Malignant Hypertherm, Malignant Hyperthermia Diabetes History Hx Diabetes?: Yes Type of Diabetes: Type II Glycemic Control: Insulin & Oral Medication Current Bedside Blood Glucose: 121 MRSA MRSA: No Medications Blood Thinner: Aspirin Hypertension Medication: Yes Home Meds Incl Beta Keisha: Yes (CARVEDILOL) Date Beta Keisha Taken: Mar 08, 2017 Time Beta Keisha Taken: 0500 Reported Medications Ranitidine 150 Mg Ktjkwpt378 Mg PO prn Ref 0 03/01/17 Cholecalciferol (Vitamin D3) (Vitamin D3)50,000 Unit Kgxjyaj72,000 Unit PO WEEKLY 03/01/17 Omeprazole 20 Mg Capsule.dr20 Mg PO BID Ref 0 03/01/17 Fenofibrate 160 Mg Ttsemd680 Mg PO DAILY Ref 0 03/01/17 Cetirizine HCl (Zyrtec)10 Mg Iyrswgc31 Mg PO prn #30 CAPSULE Ref 0 12/01/16 Bupropion ER (Wellbutrin SR)100 Mg Tablet.er100 Mg PO BID Ref 0 12/01/16 Vit B Comp/C/FA/Iron/Vit E (Vitamin B Complex Tablet)1 Each Tablet1 Each PO DAILY 12/01/16 Linagliptin (Tradjenta)5 Mg Tablet5 Mg PO DAILY 12/01/16 Levothyroxine (Synthroid)125 Mcg Zuaxln526 Mcg PO DAILY Ref 0 12/01/16 Bacillus Coagulans (Probiotic)10 Billion Cell Capsule.dr1 Each PO DAILY 12/01/16 Oxybutynin Chloride ER 5 Mg Tab.er.245 Mg PO DAILY Ref 0 12/01/16 Metformin (Glucophage)1,000 Mg Tablet1,000 Mg PO BID Ref 0 12/01/16 Lisinopril 40 Mg Ctnebg86 Mg PO DAILY 30 Days Ref 0 12/01/16 Atorvastatin (Lipitor)20 Mg Qtfhuw32 Mg PO DAILY Ref 0 12/01/16 Insulin Glargine (Lantus U100 Insulin Vial)100 Unit/Ml Vial32 Unit SUBQ HS #1 VIAL Ref 0 12/01/16 [place]-3/Dha/Epa/Fish Oil (Fish Oil 1,000 mg Softgel)1 Each Capsule1 Each PO DAILY 12/01/16 Carvedilol (Coreg)25 Mg Lnciki30 Mg PO BID Ref 0 12/01/16 Ubidecarenone/Vit E Acetate (Co Q-10 100 mg Softgel)1 Each Capsule1 Each PO DAILY 12/01/16 Aspirin 81 Mg Pldvbt27 Mg PO DAILY Ref 0 12/01/16 Discontinued Reported Medications Ranitidine 75 Mg Dotgrw14 Mg PO DAILY Ref 0 03/01/17 Insulin Glargine (Lantus U100 Solostar Insulin Pen)100 Unit/1 Ml Insuln.myd703 Unit SUBQ HS Ref 0 03/01/17 [Mitomycin ] No Conflict Check40 Mg IVPB Q 4 MONTHS 12/27/16 Cholecalciferol (Vitamin D3) (Vitamin D3)4,000 Unit Capsule1,000 Unit PO DAILY 12/01/16 Fenofibrate (Tricor)145 Mg Lja325 Mg PO DAILY 30 Days Ref 0 12/01/16 Omeprazole 40 Mg Capsule.dr40 Mg PO DAILY Ref 0 12/01/16 History History of ENT Problems?: No HEENT History: Positive for:: Hearing Problem Sinus Problem (seasonal allergies) TMJ (grinds teeth, wears carpenter helper) Denies:: Abnormal Airway Cataracts Difficult Intubation Dysphagia Denture Type: None Teeth Condition: Within Normal Limits Hx of Heart Problems?: Yes Cardiovascular History: Positive for:: Cardiac Surgery (heart cath with stents x 2- remote hx of) Hypertension Denies:: AICD Abdominal Aortic Aneurism Atrial Fibrillation Chest Pain Congestive Heart Failure Edema Heart Murmur Irregular Heartbeat Pacemaker Rheumatic Fever Thrombophlebitis Valvular Heart Disease Hx of Respiratory Problem?: Yes Respiratory History: Denies:: Asthma COPD Dyspnea Emphysema Hemoptysis Oxygen Administration Pneumonia Pulmonary Embolism Tuberculosis Use of C-PAP Machine (FLEX+ does not tolerate CPAP) Hx Neurologic Problems?: No Neurological History: Denies:: Alzheimer's Disease CVA Dementia Dizziness Headaches Multiple Sclerosis Parkinson's Disease Seizures Hx of GI Problems?: Yes Hx of Problems?: Yes Genitourinary History: Denies:: HX of Hemodialysis Kidney Stones Urinary Tract Infection Other Pertinent History: bladder cancer current admission problem Male Hx: Denies:: Prostate Problems Scrotal Mass Testicular Surgery Skin History: Denies:: History Skin Disorders? Pressure Ulcers Hx Musculoskeletal Problems?: No Musculoskeletal History: Denies:: Back Injury Joint Replacement Musculoskeletal Trauma Hx of Psycho/Social Problems?: No Psycho Social History: Denies:: Anxiety Bipolar Disorder Hx Depression Hx Surgeries?: Yes (cyto, bladder bx) Hx Any Other Health Problems?: Yes Other History: Positive for:: Cancer (bladder) Thyroid Disease Denies:: Endocrine Disease Hospitalization History Blood Transfusions: Denies:: Blood Transfusions Hx Diabetes: YesBedside Blood Glucose: 121 Hx Alcohol Use: YesHx Substance Use: No Smoking Status: Former Smoker Have You Smoked inLast 12 mo: No Stop/Bang S-Snoring: Do You Snore Loudly: Yes T-Tired: feel tired, fatigued: Yes O-Obsered: Observed not breath: No P-Blood Pressure: treated: Yes B- Body Mass Index > 35 kg/m2: Yes A- Age over 50: Yes N- Neck Large Circumference: Yes G- Gender Male: Yes FLEX Risk Assessment: High Risk, =/>3 Yes FLEX Category 2: Yes Risk Assessment Category Category 1A: Patient has history of documented sleep apnea, and HAS NOT received any narcotic, sedative or anesthesia administration during this stay. Category 1B: Patient has history of documented sleep apnea, and HAS received any narcotic , sedative or anesthesia administration during this stay Category 2: Patient has SUSPECTED Obstructive Sleep Apnea, and HAS received any narcotic , sedative or anesthesia administration during this stay. Category 3: Patient has SUSPECTED Obstructive Sleep Apnea and HAS NOT received narcotic, sedative or anesthesia administration during this stay. Category 4: Outpatient in Procedural Areas with known sleep apnea or who screen positive for High Risk via the STOP/BANG questionnaire. Exam Exam Vital Signs Vital Signs Date Time Temp Pulse Resp B/P Pulse Ox O2 Delivery O2 Flow Rate FiO2 03/08/17 06:03 36.3 85 16 135/64 95 Room Air General Appearance: Alert, Oriented X3, Cooperative, No Acute Distress HEENT/AIRWAY: MP 2 Lungs: Clear to Auscultation, Normal Air Movement Heart: Exam Unremarkable, Regular Rate/Rhythm, No Murmurs/Rubs/Gallops Meds/Labs/Diagnostics Admission Meds Current Medications Lactated Ringer's (Lr) 1,000 ml @ ud STK-MED ONCE IV Last administered on 03/08t 05:54; Start 03/08/17 at 05:54; Stop 03/08/17 at 05:55; Status DC Bedside Blood Glucose: 121 Plan Impression Patient chart reviewed, patient interviewed and anesthestic plan with risks, benefits, and alternatives discussed, and informed consent obtained. NPO per Anesth. Guidelines: Yes ASA Physical Status: ASA3 Severe Disease Anesthetic Plan: MAC Bene/Risks/Altern/Consents: Yes HP Complete Prior to Induction: Yes Sandeep Ramos MD Mar 08, 2017 07:20
[2017-03-08] MEDS ORDERED: HepLOK Flush 100 unit/mL 5 mL Inj IVFLUSH ONE (07:42)
[2017-03-08] MEDS ORDERED: Bupivacaine-MPF 0.5% W/EPI 30 mL Inj INFILTRATE ONE (07:42)
[2017-03-08 08:10] VITALS: BP 103/55; PULSE 84; RESP 16; O2SAT 95
--- NOTE | 2017-03-08 08:26 | PCM.ANEP1 ---
Post Anesthesia PACU Phase 1 Assessment Date of Service: Mar 08, 2017 Vital Signs Vital Signs Date Time Temp Pulse Resp B/P Pulse Ox O2 Delivery O2 Flow Rate FiO2 03/08/17 08:10 37.1 84 16 103/55 95 Room Air 03/08/17 06:03 36.3 85 16 135/64 95 Room Air Anesthetic Administered: GA Level of Alertness: Awake, talking Pain: No Nausea or Vomiting: No CV Function & Hydration Stable: Yes Airway Device: Oxygen Delivery: Room Air Lungs: Clear to Auscultation, Normal Air Movement PACU Phase 2 Assessment Complications: No Follow up Care: N/A Patient Instructions Provided: N/A Sandeep Ramos MD Mar 08, 2017 08:26
[2017-03-08 08:59] VITALS: BP 140/60; PULSE 83; RESP 18; O2SAT 96
--- NOTE | 2017-03-08 09:25 | OP ---
[address] [address] OPERATIVE REPORT PATIENT: DENNIS MCDONALD : 1945 MR#: [id number] ADMIT: 03/08/2017 JOB ID: [id number] DATE OF SURGERY: 03/08/2017 ANESTHESIA: MAC with local. PREOPERATIVE DIAGNOSIS(ES): Recurrent bladder cancer. POSTOPERATIVE DIAGNOSIS(ES): Recurrent bladder cancer. OPERATIVE PROCEDURE: Insertion of left subclavian vein Port-A-Cath using fluoroscopy with interpretation for guidance. SURGEON: Clement Carvalho MD. INDUSTRIAL REFRIGERATION MECHANIC: Carlos Waldron PA-C COMPLICATIONS: None. ESTIMATED BLOOD LOSS: Less than 5 mL. CONDITION: Satisfactory. SPECIMEN: None. FINDINGS: A regular profile port was placed in the left subclavian vein without complication. INDICATIONS/SIGNIFICANT HISTORY: The patient is a 71-year-old man with recurrent bladder tumors who is now to undergo neoadjuvant chemotherapy followed by cystectomy. OPERATIVE TECHNIQUE: The patient was taken to the operating room and placed in supine position. Light sedation was administered and perioperative antibiotics were given. The neck and chest were prepped and draped in standard surgical fashion. A procedure pause was performed. The left subclavian vein was accessed with the first attempt using a finder needle. A wire was inserted and seemed to course down through the venous system into the right atrium. Local anesthetic was injected and a subcutaneous pocket was created in the left anterior chest. A regular Profore port was secured in place using three 2-0 Prolene sutures. The catheter was tunneled up to the wire exit point and inserted into the vein under fluoroscopic visualization using the Seldinger technique. Good final position was confirmed. The port aspirated and flushed nicely. This was locked with heparin. The skin was closed using 3-0 Vicryl, followed by running 4-0 Monocryl. Dermabond was applied. The entire procedure was well tolerated without complication. [facility]PITALDayanna
--- NOTE | 2017-03-08 11:08 | DRSVH ---
PROCEDURE: X-RAY CHEST ONE VIEW, PORTABLE ([id number]) INDICATIONS: port TECHNIQUE: One view of the chest was acquired. COMPARISON: [facility], CR, XR SURG FLUORO-VENOUS ACCESS CURT, 03/08/2017, 7:51. FINDINGS: Surgical changes and devices: Left subclavian chest port present tip projected over the mid superior vena cava. Lungs and pleura: No pleural effusions or pneumothorax. Lungs are clear. Mediastinum: Mediastinal contours appear normal. Heart size is enlarged. Bones and chest wall: No suspicious bony lesions. Overlying soft tissues appear unremarkable. IMPRESSION: Placement of left chest port. Dictated by: Jacobo Shin RR Interpreted: Carlos Fernandez MD on 03/08/2017 at 10:06 Approved by: Carlos Fernandez M.D. on 03/08/2017 at 11:04
[2017-03-09] MEDS ORDERED: ATOR20TA PO (09:27)
[2017-03-09] MEDS ORDERED: BUPR200T2 PO (09:27)
[2017-03-09] MEDS ORDERED: FENO160T PO (09:27)
[2017-03-09] MEDS ORDERED: OMEP40CA36 PO (09:27)
[2017-03-09] MEDS ORDERED: TROS20TA4 PO (09:27)
[2017-03-09] MEDS ORDERED: CHOL40003 PO (09:27)
[2017-03-09] MEDS ORDERED: HYOS0.1216 PO (09:27)
[2017-03-09] MEDS ORDERED: [UNRECOGNIZED DRUG - CODE] IV (09:27)
[2017-03-09] MEDS ORDERED: SULF1TAB35 PO (09:27)
== END 2017-03-08 23:59 | disposition home or self-care (01) ==
LOC: SAS 05:41
PROVIDERS: ATTEND General Practice
DX: C67.9 Malignant neoplasm of bladder, unspecified (principal); I10 Essential (primary) hypertension; I25.10 Atherosclerotic heart disease of native coronary artery without angina pectoris; E78.5 Hyperlipidemia, unspecified; E11.9 Type 2 diabetes mellitus without complications; I25.2 Old myocardial infarction; K21.9 Gastro-esophageal reflux disease without esophagitis; E66.01 Morbid (severe) obesity due to excess calories; F17.210 Nicotine dependence, cigarettes, uncomplicated; Z95.5 Presence of coronary angioplasty implant and graft; Z79.4 Long term (current) use of insulin; Z68.39 Body mass index [BMI] 39.0-39.9, adult; Z79.82 Long term (current) use of aspirin; Z79.84 Long term (current) use of oral hypoglycemic drugs
CPT/HCPCS: 36561; 71010; 77001; C1788; C1894; J0690; J1642; J7120

== ENCOUNTER 2017-05-19 11:50 | Emergency (ER) | payer MEDICARE, OTHER ==
[~2017-05-19] VITALS: Ht 170.2 cm; Wt 110.5 kg
[~2017-05-19 11:50] MED LIST changes: -BUPR100T7 PO; +BUPR200T2 PO; +CHOL3000 PO; -CHOL500050 PO; +FENO160T PO; +FESO8TAB PO; -OMEP20CA11 PO; +OMEP40CA36 PO; +ONDA8TAB7 PO; -OXYB5TAB PO; +PROC-4 PO; +TRAM50TA2 PO
[2017-05-19 11:54] VITALS: BP 149/67; PULSE 104; RESP 20; O2SAT 94
--- NOTE | 2017-05-19 12:35 | ED.REPORT ---
HPI-Dyspnea / Wheezing Date of Service May 19, 2017 ED Provider: Be Vital MD Patient is a 71 year old male with a history of hypertension, CAD with stent placement, diabetes and bladder cancer (last chemo treatment 3 days ago) who presents to the ED complaining of a productive cough onset two days ago. Associated symptoms include a fever of 100.3 yesterday, chills and fatigue. He denies chest pain or shortness of breath. The patient also reports that he is currently on Prednisone. Nursing Notes Stated Complaint: CHECK UP/COUGHING Chief Complaint: General Complaint Nursing Notes Reviewed: Yes Allergies: Coded Allergies: glipizide (Verified Allergy, Severe, hives, 03/01/17) simvastatin (Verified Adverse Reaction, Severe, elevated triglycerides, ) Uncoded Allergies: terephthalate? (Adverse Reaction, Severe, hallucinations, 03/09/17) Scheduled Aspirin (Aspirin) 81 Mg Tablet 81 MG PO DAILY Atorvastatin (Lipitor) 20 Mg Tablet 20 MG PO DAILY Bacillus Coagulans (Probiotic) 10 Billion Cell Capsule.dr 1 EACH PO DAILY Bupropion ER (Wellbutrin SR) 200 Mg Tablet.er 200 MG PO BID Carvedilol (Coreg) 25 Mg Tablet 25 MG PO BID Cetirizine HCl (Zyrtec) 10 Mg Capsule 10 MG PO prn Cholecalciferol (Vitamin D3) (Vitamin D3) 3,000 Unit Tablet 3,000 UNIT PO DAILY Fenofibrate (Fenofibrate) 160 Mg Tablet 160 MG PO DAILY Fenofibrate (Tricor) 145 Mg Tab 145 MG PO DAILY Fesoterodine ER (Toviaz) 8 Mg Tablet 8 MG PO DAILY Insulin Glargine (Lantus U100 Insulin Vial) 100 Unit/Ml Vial 32 UNIT SUBQ HS Levothyroxine (Synthroid) 125 Mcg Tablet 125 MCG PO DAILY Linagliptin (Tradjenta) 5 Mg Tablet 5 MG PO DAILY Lisinopril (Lisinopril) 40 Mg Tablet 40 MG PO DAILY Metformin (Glucophage) 1,000 Mg Tablet 1,000 MG PO BID [place]-3/Dha/Epa/Fish Oil (Fish Oil 1,000 mg Softgel) 1 Each Capsule 1 EACH PO DAILY Omeprazole (Omeprazole) 40 Mg Capsule.dr 40 MG PO DAILY Prochlorperazine Maleate (Compazine) 10 Mg Tablet 10 MG PO q6hrs prn Ranitidine (Ranitidine) 150 Mg Capsule 150 MG PO prn Ubidecarenone/Vit E Acetate (Co Q-10 100 mg Softgel) 1 Each Capsule 1 EACH PO DAILY Vit B Comp/C/FA/Iron/Vit E (Vitamin B Complex Tablet) 1 Each Tablet 1 EACH PO DAILY Scheduled PRN Ondansetron ODT (Zofran ODT) 8 Mg Tablet 8 MG PO q8hrs prn PRN PRN For Nausea Tramadol (Tramadol) 50 Mg Tablet 50 MG PO Q6H PRN PRN For Pain General Time Seen by MD: 12:13 Chief Complaint Cough Hx Obtained From: Patient Arrived By: Walk-in Sudden in Onset?: Yes Onset Occurred: 2 days ago Symptom Duration: Since onset Location: : None Recent Healthcare: Recent doctor visit Past Medical History Past Medical History bladder cancer Reports: Coronary artery disease, Diabetes mellitus, Hypertension Past Surgical History cardiac stents Smoking History Former Smoker Social History Other Social History: Good social support Ambulatory Status Independent Review of Systems Constitutional: Reports: Chills, Fatigue, Fever Respiratory: Reports: Prod cough, yellow, Denies: Shortness of breath Cardiovascular: Denies: Chest pain Skin: Denies Itching, Denies Rash Complete sys rev & neg: except as marked. Physical Exam Initial Vital Signs Vital Signs (First) Date Time Temp Pulse Resp B/P Pulse Ox O2 Delivery O2 Flow Rate FiO2 05/19/17 11:54 37.6 104 20 149/67 94 Room Air Initial VS: Reviewed General/Constitutional: Awake, Alert Neck: Atraumatic, Supple Respiratory / Chest: Atraumatic, Breath sounds NL, Breath sounds = bilat, No respiratory distress Cardiovascular: Heart rate NL, Regular rhythm, Heart sounds NL Lower Extremity / Pelvis / MS: Atraumatic, Full range of motion trace edema Skin: Atraumatic, Color NL, No rash, Warm, Dry Neurologic: Oriented X3, Speech NL Head / Eyes: Atraumatic, Normocephalic, PERRL, EOMI Upper Extremity / MS: Atraumatic, Full range of motion Psychiatric: Affect NL, Mood NL Interpretation & Diagnostics Lab Results Interpretation Result Diagram: 05/19/17 1240 05/19/17 1240 Test 05/19/17 12:40 White Blood Count 3.9th/mm3 (3.8-10.1) Red Blood Count 3.51mil/mm3 (4.40-5.80) Hemoglobin 9.6g/dL (13.8-17.2) Hematocrit 29.3% (41.0-50.0) Mean Corpuscular Volume 83.5fL (81-100) Mean Corpuscular Hemoglobin 27.4pg (27.0-35.0) Mean Corpuscular Hemoglobin Concent 32.8% (32.0-37.0) Red Cell Distribution Width 19.5% (12.3-15.4) Platelet Count 345bil/L (150-400) Neutrophils (%) (Auto) 86.6% (40-74) Lymphocytes (%) (Auto) 6.2% (14-46) Monocytes (%) (Auto) 4.4% (4-12) Eosinophils (%) (Auto) 1.3% (0-5) Basophils (%) (Auto) 0.5% (0-3) Sodium Level 133mEq/L (134-144) Potassium Level 5.0mEq/L (3.5-5.2) Chloride Level 97mEq/L (97-108) Carbon Dioxide Level 23mmol/L (18-29) Blood Urea Nitrogen 20mg/dL (8-27) Creatinine 1.03mg/dL (0.76-1.27) Estimat Glomerular Filtration Rate 76mL/min (>59) Glucose Level 170mg/dL (60-99) Lactic Acid Level 1.2mmol/L (0.4-2.0) Calcium Level 9.4mg/dL (8.5-10.1) Total Bilirubin 0.7mg/dL (0.0-1.2) Aspartate Amino Transf (AST/SGOT) 18U/L (0-50) Alanine Aminotransferase (ALT/SGPT) 17U/L (0-44) Alkaline Phosphatase 77U/L (25-160) Total Protein 6.5g/dL (6.4-8.4) Albumin 3.5g/dL (3.4-5.0) X-Ray Chest Interpretation Chest Xray Interpretation: IMPRESSION: No acute pulmonary process. Dictated by: Harriet Vargas M.D. on 05/19/2017 at 13:22 Approved by: Harriet Vargas M.D. on 05/19/2017 at 13:22 View: Portable, 1 view Interpretation / Wet Read by: Interpret - Radiologist Re-Eval/Medical Decision Re-Evaluation/Progress : Time of Eval: 14:36 Re-Evaluation/Progress Note: Discussed results and plan for discharge. Patient understands and agrees to plan. All questions were addressed. Consultation : Consulted With: On-call physician (oncology) Call Returned at: 14:30 Clay Miner: Agrees with eval, Agrees with plan Note: Consult with Dr. Simmons, who recommends the patient be put on Levaquin for 7 days. Counseled Regarding: Diagnosis, Lab results, Need for follow-up, When/why to return to ED Discharge & Departure Impression: Primary Impression: Cough Additional Impression: Fever Fever type: unspecified Qualified Code: R50.9 - Fever, unspecified Disposition: Home Discharge Condition All VS Reviewed: Yes Condition: Stable Additional Instructions: Your labs and X-ray were normal and reassuring. You can take Tylenol as directed for fever. Dr. Simmons would like you to take 500mg of Levaquin, once a day for the next 7 days. Follow up with Dr. Simmons next week. Return to the emergency department if you develop any new or concerning symptoms Referrals: Jaquelin Craft MD (PCP) Елена Attestation Portions of this note were transcribed by Kerrie Esparza. I, Dr. Vital personally performed the history, physical exam and medical decision-making; I reviewed and confirmed the accuracy of the information in the transcribed note. Signed by: Елена Hernandez, 05/19/17 copies to: Jaquelin Craft MD, Kirk H MD May 19, 2017 12:35 Remedios Esparza May 19, 2017 12:39
[2017-05-19 13:05] LABS: BASOPHILS % (AUTO) 0.5 % (0-3); EOSINOPHILS % (AUTO) 1.3 % (0-5); MONOCYTES % (AUTO) 4.4 % (4-12); Mean Corpuscular Hemoglobin 27.4 pg (27.0-35.0); Mean Corpuscular Volume 83.5 fL (81-100); NEUTROPHILS % (AUTO) 86.6 % (40-74); Platelet Count 345 bil/L (150-400)
--- NOTE | 2017-05-19 13:23 | DRSVH ---
PROCEDURE: X-RAY CHEST, TWO VIEWS ([id number]) INDICATIONS: cough TECHNIQUE: 2 views of the chest were acquired. COMPARISON: None. FINDINGS: Surgical changes and devices: Left Port-A-Cath is present. Lungs and pleura: No pleural effusions or pneumothorax. Lungs are clear. Mediastinum: Mediastinal contours are normal. Heart size is normal. Bones and chest wall: No suspicious bony abnormalities. Soft tissues appear unremarkable. IMPRESSION: No acute pulmonary process. Dictated by: Harriet Vargas M.D. on 05/19/2017 at 13:22 Approved by: Harriet Vargas M.D. on 05/19/2017 at 13:22
[2017-05-19] MEDS ORDERED: levoFLOXacin 500 mg Tablet PO ONE (14:40)
[2017-05-19] MEDS ORDERED: LEVO500T20 PO (14:41)
[2017-05-19 15:08] VITALS: BP 151/83; PULSE 94; RESP 18; O2SAT 95
== END 2017-05-19 15:08 | disposition home or self-care (01) ==
LOC: SED 11:50
DX: R05 Cough (principal); R50.9 Fever, unspecified; R53.83 Other fatigue; I11.9 Hypertensive heart disease without heart failure; I25.10 Atherosclerotic heart disease of native coronary artery without angina pectoris; E11.59 Type 2 diabetes mellitus with other circulatory complications; E78.5 Hyperlipidemia, unspecified; Z79.82 Long term (current) use of aspirin; Z79.4 Long term (current) use of insulin; Z79.84 Long term (current) use of oral hypoglycemic drugs; Z95.5 Presence of coronary angioplasty implant and graft; Z87.891 Personal history of nicotine dependence; Z88.8 Allergy status to other drugs, medicaments and biological substances